=== PATIENT | female | born 2000 | race Two or more races ===

== ENCOUNTER 2019-10-31 01:46 | Emergency (ER) | payer SELFPAY ==
[2019-10-31 02:00] VITALS: BP 114/69; PULSE 98; TEMP 98.8; BMI 28.3
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
[2019-10-31] MEDS ORDERED: ACETAMINOPHEN 325 MG TABLET (FP) PO ONE (03:15)
[2019-10-31] MEDS ORDERED: ACETAMINOPHEN 325 MG TABLET (FP) ONE (03:19)
== END 2019-10-31 03:43 | disposition home or self-care (01) ==
LOC: JER 01:46
DX: M54.2 Cervicalgia (principal); M25.512 Pain in left shoulder; M54.5 Low back pain
CPT/HCPCS: 99283-25